=== PATIENT | male | born 1960 | race Caucasian/White ===

== ENCOUNTER 2025-01-20 06:24 | Day surgery (SDC) | payer BC, SELFPAY | END 2025-01-20 15:35 | disposition home or self-care (01) | LOC: GI 06:24 | PROVIDERS: ATTENDING PHYSICIAN Internal Medicine | DX: Z12.11 Encounter for screening for malignant neoplasm of colon (principal); K64.8 Other hemorrhoids; K57.30 Diverticulosis of large intestine without perforation or abscess without bleeding; K55.20 Angiodysplasia of colon without hemorrhage; D12.0 Benign neoplasm of cecum; K62.1 Rectal polyp | CPT/HCPCS: 45385; 88305 ==